=== PATIENT | female | born 1930 | race Caucasian/White ===

== ENCOUNTER 2016-08-04 07:05 | Emergency (ER) | payer OTHER ==
[2016-08-04 06:28] LABS: BASOPHILS 0.4 %; BASOPHILS ABSOLUTE 0.04 10/3/uL (0.0-0.16); EOSINOPHILS 3.5 %; EOSINOPHILS ABSOLUTE 0.35 10/3/uL (0.0-0.53); ER CBC TAT 0 Hrs 03 Mins; HEMATOCRIT 35.5 % (36.0-48.0); HEMOGLOBIN 11.2 g/dL (12.0-16.0); IMMATURE GRANULOCYTES 0.1 %; IMMATURE GRANULOCYTES ABSOLUTE 0.01 10/3/uL (0.0-0.11); LYMPHOCYTES 15.5 %; LYMPHOCYTES ABSOLUTE 1.57 10/3/uL (0.67-4.30); MEAN CORPUS HGB CONC 31.5 g/dL (32.0-36.0); MEAN CORPUSCULAR HEMOGLOB 28.8 pg (26.0-34.0); MEAN CORPUSCULAR VOLUME 91.3 fL (80-100); MEAN PLATELET VOLUME 10.9 fL (9.2-13.0); MONOCYTES 8.4 %; MONOCYTES ABSOLUTE 0.85 10/3/uL (0.21-1.20); NEUTROPHILS 72.1 %; NEUTROPHILS ABSOLUTE 7.29 10/3/uL (2.02-8.40); PLATELET COUNT 145 10/3/uL (150-400); RBC DISTRIBUTION WIDTH 14.4 % (12.0-16.0); RED CELL COUNT 3.89 10/6/uL (4.0-5.6); WHITE BLOOD CELLS 10.1 10/3/uL (4.5-10.5)
[2016-08-04 06:30] LABS: MANUAL DIFF NO %
[2016-08-04 06:37] LABS: INTERNATIONAL NORMAL RATI 1.1 UNITS (-); PARTIAL THROMBO TIME 28.7 SEC (22.5-37.2); PROTIME (NOT ORD) 13.6 SEC (12.0-14.5)
[2016-08-04 06:47] LABS: CALCIUM, SERUM 9.9 MG/DL (8.5-10.4); CHEST PAIN PROFILE TAT 0 Hrs 22 Mins; CHLORIDE, SERUM 103 MMOL/L (96-112); CREATININE 1.33 MG/DL (0.55-1.02); GFR AFRICAN AMERICAN 42 ML/MIN (>=60); GFR NON AFRICAN AMERICAN 37 ML/MIN (>=60); POTASSIUM, SERUM 4.5 MMOL/L (3.5-5.3); SODIUM, SERUM 142 MMOL/L (135-148); TROPONIN I <0.02 NG/ML (<0.05)
[2016-08-04 06:48] LABS: BUN (BLOOD UREA NITROGEN) 32 MG/DL (6-23); CO2 (CARBON DIOXIDE) 37 MMOL/L (24-34); GLUCOSE, SERUM 110 MG/DL (60-99)
[~2016-08-04 07:05] MED LIST: ALEVE220 MG PO; ASAB PO; CARD30 PO; CARDCD180 PO; COZ25 PO; CRANBERRY500 MG PO; CYANO1000T IJ; DILT-XR240 MG PO; ENDOCET1 TA3 PO; EPITOL200 MG PO; KLOR-CON 1010 MEQ PO; L20 PO; LOM PO; LUMIGAN2.5 ML OPH; MAGOX4 PO; METHOC750B PO; MOBIC7.5 PO; MULTIVIT/MIN PO; MYRBETRIQ25 MG PO; PRILO PO; TIMOLOL MAL0.25 % OPH; ULTRAM50 PO; XALAT OPH; Z100 PO; [UNRECOGNIZED DRUG - OTHER] PO
== END 2016-08-04 11:32 | disposition home or self-care (01) ==
LOC: ER 07:05
PROVIDERS: Emergency Medicine
DX: G50.0 Trigeminal neuralgia (principal); Z90.10 Acquired absence of unspecified breast and nipple; Z88.2 Allergy status to sulfonamides; Z88.8 Allergy status to other drugs, medicaments and biological substances; Z79.82 Long term (current) use of aspirin; Z79.899 Other long term (current) drug therapy
CPT/HCPCS: 70450; 80048; 83735; 84484; 85025; 85610; 85730; 96374; 99284; A9270-GY; J1170; J2405

== ENCOUNTER 2016-09-02 09:18 | Inpatient (IN) | payer OTHER ==
[2016-08-29 11:41] LABS: BASOPHILS 0.7 %; BASOPHILS ABSOLUTE 0.07 10/3/uL (0.0-0.16); EOSINOPHILS 4.4 %; EOSINOPHILS ABSOLUTE 0.47 10/3/uL (0.0-0.53); HEMATOCRIT 39.7 % (36.0-48.0); HEMOGLOBIN 12.7 g/dL (12.0-16.0); IMMATURE GRANULOCYTES 0.3 %; IMMATURE GRANULOCYTES ABSOLUTE 0.03 10/3/uL (0.0-0.11); LYMPHOCYTES 22.8 %; LYMPHOCYTES ABSOLUTE 2.43 10/3/uL (0.67-4.30); MANUAL DIFF NO %; MEAN CORPUSCULAR HEMOGLOB 28.5 pg (26.0-34.0); MEAN CORPUSCULAR VOLUME 89.2 fL (80-100); MONOCYTES 5.9 %; MONOCYTES ABSOLUTE 0.63 10/3/uL (0.21-1.20); NEUTROPHILS 65.9 %; NEUTROPHILS ABSOLUTE 7.03 10/3/uL (2.02-8.40); PLATELET COUNT 230 10/3/uL (150-400); RBC DISTRIBUTION WIDTH 13.8 % (12.0-16.0); RED CELL COUNT 4.45 10/6/uL (4.0-5.6); WHITE BLOOD CELLS 10.7 10/3/uL (4.5-10.5)
[2016-08-29 11:46] LABS: INTERNATIONAL NORMAL RATI 1.1 UNITS (-); PROTIME (NOT ORD) 14.2 SEC (12.0-14.5)
[2016-08-29 11:54] LABS: CALCIUM, SERUM 10.3 MG/DL (8.5-10.4); CHLORIDE, SERUM 105 MMOL/L (96-112); CO2 (CARBON DIOXIDE) 30 MMOL/L (24-34); POTASSIUM, SERUM 4.1 MMOL/L (3.5-5.3); SODIUM, SERUM 142 MMOL/L (135-148)
[2016-08-29 11:55] LABS: BUN (BLOOD UREA NITROGEN) 33 MG/DL (6-23); CREATININE 1.71 MG/DL (0.55-1.02); GFR AFRICAN AMERICAN 31 ML/MIN (>=60); GFR NON AFRICAN AMERICAN 27 ML/MIN (>=60); GLUCOSE, SERUM 108 MG/DL (60-99)
[2016-08-29 12:02] LABS: ASCORBIC ACID (UR NOT ORDER) NEG (NEG); BILIRUBIN, URINE NEGATIVE (NEG); KETONE, URINE TRACE MG/DL (NEG); LEUKOCYTE ESTERASE(NOT OR SMALL (NEG); WBC (NOT ORDERED) (RFLEX) 12 (0-5)
--- NOTE | ~2016-09-02 | DS ---
Discharge Summary [facility] [address] [place]. [address] NAME: MARK GROVE : 32 STATUS : DIS IN PAT#: [id number] AGE: 86 ADM/REG DATE : 09/02/16 MR#: [id number] REPORT SERV DATE: 09/12/16 DICTATED BY: KIP BAHENA DATE: 09/11/16 REPORT STATUS : Draft TRANSCRIBED BY: MODVeronica DATE: 09/11/16 Data Collection from hospitalization DISCHARGE DIAGNOSIS(ES): 1. Right internal carotid artery stenosis, critical, 95%. 2. Chronic kidney disease stage 3. 3. Peripheral vascular disease. 4. Hypertension. 5. Irritable bowel syndrome. 6. History of anemia. 7. Anxiety disorder. 8. Gout. CONSULTATIONS: None. PROCEDURES PERFORMED: Right eversion carotid endarterectomy with intraoperative ultrasound guidance and permissive hypertension, 09/02/2016. PATHOLOGY: Right carotid artery endarterectomy, calcified atherosclerotic plaque. MEDICATIONS: Zyloprim 100 mg every morning, aspirin 81 mg daily, Cardizem CD 180 mg daily, Lasix 20 mg every morning, Lumigan one drop each eye at bedtime, Cozaar 6.25 mg every morning, Myrbetriq 25 mg every morning, Lomotil 2.5 mg four times daily as needed, timolol one drop each eye twice daily, and Aleve 220 mg every 12 hours as needed. CONDITION AT DISCHARGE: Upon discharge, she did appear to be doing well and had no complaints. DISPOSITION: She had been discharged home to continue a pureed diet as directed. She was to have activity as tolerated. She was to call my office for a followup appointment. HOSPITAL COURSE: This very pleasant 86-year-old female presented with evidence of a critical obstruction of the right carotid, asymptomatic. Recommendations were made for endarterectomy and the risks and benefits were discussed with the patient and she was agreeable to proceed. She was admitted for surgery and further treatment. Upon admission to the hospital, she had been taken to the operating room where she did undergo the above procedure. She tolerated this well and was transferred to the recovery room. On postop day #1, she was noted to have some swelling and was unable to swallow or talk. Her blood pressure was at 129/61. She was continued on supportive care and had remained in CV-ICU secondary to her dysphagia. On postop day #2, her hoarseness had resolved, and she had been placed on ice chips and water. Her diet was to be slowly advanced. On postop day #3, she did continue to do well and had no new complaints. Due to her stable condition, she had been discharged with the above instructions. Information collected by: Dhiraj Morse. I submit the above information as my discharge summary. Discharge Summary [address] [address] NAME: MARK GROVE : 31 STATUS : DIS IN PAT#: [id number] AGE: 86 ADM/REG DATE : 09/02/16 MR#: [id number] REPORT SERV DATE: 09/12/16 DICTATED BY: KIP BAHENA DATE: 09/11/16 REPORT STATUS : Draft TRANSCRIBED BY: LUCIA DATE: 09/11/16 BONIFACIO/LUCIA Kip Bahena M.D. / [id number] CC: Kip Bahena M.D. [facility], [place]
--- NOTE | ~2016-09-02 | OP ---
Record Of Operation [facility] [address] [place]. [address] NAME: MARK GROVE : 32 STATUS : ADM IN PAT#: [id number] AGE: 86 ADM/REG DATE : 09/02/16 MR#: [id number] REPORT SERV DATE: 09/02/16 DICTATED BY: KIP MARI DATE: 09/02/16 REPORT STATUS : Draft TRANSCRIBED BY: MODL DATE: 09/02/16 DATE OF PROCEDURE: 09/02/2016 PREPROCEDURE DIAGNOSIS: Critical right internal carotid artery obstruction. POSTOPERATIVE DIAGNOSIS: 95% stenosis of right internal carotid artery. PROCEDURE PERFORMED: Right eversion carotid endarterectomy with intraoperative ultrasound guidance and permissive hypertension. ATTENDING: Kip Mari M.D. ANESTHESIA: Local MAC. COMPLICATIONS: None. INDICATION FOR PROCEDURE: Secondary to this very pleasant 86-year-old female presenting with evidence of a critical obstruction of the right carotid, asymptomatic. Recommendations were made for endarterectomy. Risks and benefits discussed. Consent was obtained. DETAILS OF PROCEDURE: The patient was brought to the endovascular operating room, placed in supine position, prepped and draped in routine sterile fashion with attention to the right neck. After appropriate local and MAC anesthesia, dissection proceeded down through the skin and subcutaneous tissues in the region that was define by the ultrasound. The common carotid artery was loop controlled followed by the external carotid artery loop control and the internal, external, and bulb were then skeletonized. When this was completed, the 5000 units of heparin had been given and allowed to circulate. The distal ICA was then clamped after permissive hypertension was performed with rasing of the systolic blood pressure over 200 and maintaining during the clamp time. The common carotid artery was then clamped, external loop controlled, the internal was then amputated from the bulb to create a wide patch. Eversion technique removed plaque and debris from the internal and bulb region to my satisfaction. The bulb was then endarterectomized followed by the external carotid and the common. When this was completed to my satisfaction, the anastomosis was then performed after appropriate flushing maneuvers techniques were utilized. The anastomosis was performed with a 6-0 Prolene on a C1 needle running continuous stitch. This was hemostatic upon completion. Flushing maneuvers were performed prior to complete closure. Next, the Surgicel and FloSeal were utilized to promote local hemostasis. This was adequate and the deep layers were then closed with Vicryl and Monocryl for the skin. Steri-Strip dressings were applied. The patient tolerated the procedure well. The patient was then transferred to recovery in stable condition. The patient was neurologically intact throughout the entire procedure. MALINI/LUCIA Record Of [address] [place] [address] NAME: MARK GROVE : 31 STATUS : ADM IN PAT#: [id number] AGE: 86 ADM/REG DATE : 09/02/16 MR#: [id number] REPORT SERV DATE: 09/02/16 DICTATED BY: KIP MARI DATE: 09/02/16 REPORT STATUS : Draft TRANSCRIBED BY: LUCIA DATE: 09/02/16 Kip Mari M.D. / [id number] CC: Kip Mari M.D.
[2016-09-05 05:00] LABS: CREATININE 1.05 MG/DL (0.55-1.02)
[2016-09-05] MEDS ORDERED: PCET PO (11:10)
== END 2016-09-05 12:27 | disposition home or self-care (01) | DRG 38 ==
LOC: SDC/OF 09:18 → CVICU 14:45 → 2SO 09-04 16:07
PROVIDERS: Specialist
PROC: 03CK0ZZ Extirpation of Matter from Right Internal Carotid Artery, Open Approach (ICD-10-PCS; principal; 2016-09-02 11:15)
DX: I65.21 Occlusion and stenosis of right carotid artery (principal); N39.0 Urinary tract infection, site not specified; Z99.81 Dependence on supplemental oxygen; D51.9 Vitamin B12 deficiency anemia, unspecified; D64.9 Anemia, unspecified; F41.9 Anxiety disorder, unspecified; N18.3 Chronic kidney disease, stage 3 (moderate); I73.9 Peripheral vascular disease, unspecified; H40.9 Unspecified glaucoma; M10.9 Gout, unspecified; I12.9 Hypertensive chronic kidney disease with stage 1 through stage 4 chronic kidney disease, or unspecified chronic kidney disease; K58.9 Irritable bowel syndrome, unspecified; H35.30 Unspecified macular degeneration; M81.0 Age-related osteoporosis without current pathological fracture; F32.9 Major depressive disorder, single episode, unspecified; J44.9 Chronic obstructive pulmonary disease, unspecified; Z85.3 Personal history of malignant neoplasm of breast; Z98.890 Other specified postprocedural states; Z87.891 Personal history of nicotine dependence; Z82.49 Family history of ischemic heart disease and other diseases of the circulatory system; Z82.3 Family history of stroke; Z88.2 Allergy status to sulfonamides; Z88.1 Allergy status to other antibiotic agents
CPT/HCPCS: 80048; 81001; 82565; 85025; 85610; 87077; 87086; 87186; 87641; 88304; 88311; 93005; A9270-GY; J0690; J1956; J2250; J2370; J2405; J3010